=== PATIENT | male | born 1940 | race Caucasian/White ===

== ENCOUNTER 2017-01-15 11:00 | Inpatient (IN) ==
[2017-01-15] MEDS ORDERED: SODIUM CHLORIDE 0.9% 1,000 ML IV STA (11:40)
[2017-01-15] MEDS ORDERED: ASPIRIN 325 MG TABLET PO STA (11:40)
[2017-01-15] MEDS ORDERED: ONDANSETRON 4 MG/2 ML VIAL IV PRN ×2 (11:40→14:38)
--- NOTE | 2017-01-15 11:42 | Emergency Department Note ---
Arrival - Arrival Chief Complaint: Chest Pain Stated Complaint: sob,chest pain ED Nursing Triage Note: weakness in legs for three days. started having pain in center of chest with sob yesterday. has recent carotid surgery in [place] on . sob is worse on exertion. Mode of Arrival: Wheelchair Limitations: No Limitations Source: Patient, Family, RN Notes Reviewed - History of Present Illness HPI Narrative: Patient is a 76-year-old white male with a history of lightheadedness, shortness of breath, and chest discomfort. Symptoms have been ongoing for several days. Patient admits to dark black bowel movement since undergoing carotid endarterectomy in [place] on 12/22/2016. The patient denies any nausea or vomiting. There is no history of diaphoresis. The family has noticed that the patient is very pale. He is presently on Pradaxa, Plavix, and baby aspirin. Patient denies any abdominal pain. Onset (ago): day(s) (3-4) Allergies/Adverse Reactions: Allergies Allergy/AdvReac Type Severity Reaction Status Date / Time bacitracin AdvReac RASH Verified 01/15/17 11:59 [From Neosporin ([id number])] Neomycin AdvReac RASH Verified 01/15/17 11:59 [From Neosporin ([id number])] polymyxin B AdvReac RASH Verified 01/15/17 11:59 [From Neosporin ([id number])] Home Medications: Home Medications Medication Instructions Recorded Confirmed Type Aspirin EC Tab 81 mg PO DAILY 01/15/17 01/15/17 History Clopidogrel [Plavix] 75 mg PO DAILY 01/15/17 01/15/17 History Digoxin Tab [Lanoxin Tab] 0.125 mg PO DAILY 01/15/17 01/15/17 History Fenofibrate [Tricor] 145 mg PO DAILY 01/15/17 01/15/17 History Fluticasone 50 Mcg Nasal [place] 1 spray BOTH NARES DAILY PRN 01/15/17 01/15/17 History [Flonase Nasal [place]] Hydrocodone/Acetaminophen 1 each PO Q4H PRN 01/15/17 01/15/17 History [Hydrocodon-Acetaminophen 5-325] Losartan [Cozaar] 50 mg PO BID 01/15/17 01/15/17 History Magnesium Chloride [Slow Mag] 128 mg PO QAM 01/15/17 01/15/17 History Metoprolol Succinate 100 mg PO QAM 01/15/17 01/15/17 History Potassium Chloride 10 meq PO DAILY 01/15/17 01/15/17 History dilTIAZem HCl [Diltiazem ER (24 300 mg PO DAILY 01/15/17 01/15/17 History hr)] hydroCHLOROthiazide 12.5 mg PO DAILY 01/15/17 01/15/17 History [Hydrochlorothiazide] Review of System - Review of System 12 point system: reviewed and no additional remarkable complaints except as stated - Review of System Constitutional: Absent: chills, fever Respiratory: Absent: wheezing Cardiovascular: Present: chest pain, dyspnea on exertion. Absent: palpitations Gastrointestinal: Present: melena. Absent: abdominal pain, nausea, vomiting Medical,Surgical,& Family Hx - Medical History Cardio: History of: Hypertension, Pacemaker Endocrine: History of: Diabetes Mellitus (IDDM), Dyslipidemia - Social History Smoking Status: Current every day smoker (1 pack a day) Have you smoked in the last 12 months: Yes Functional capacity: independent ambulation Exam Vital Signs: Vital Signs Temperature 98.1 F 01/15/17 11:04 Pulse Rate 73 01/15/17 11:04 Respiratory Rate 20 01/15/17 11:04 Blood Pressure 142/50 01/15/17 11:04 O2 Sat by Pulse Oximetry 100 01/15/17 11:20 GENERAL: This is a chronically and acutely ill-appearing pale white male in no apparent distress. VITAL SIGNS: Reviewed HEENT: Head is atraumatic and normocephalic. Pupils are equal round react to light. Extraocular movements are intact. Oropharynx is benign with moist mucous membranes. NECK: Neck is soft and supple without tenderness. There are no masses. There is no lymphadenopathy. Healing left carotid endarterectomy incision. No evidence of erythema or induration. LUNGS: Lungs are clear to auscultation. Chest rises symmetrically. There is no chest wall tenderness. CV: Heart is regular rate and rhythm without murmurs rubs or gallops. ABDOMEN: Abdomen is soft, nontender to palpation. There are no abdominal abnormal masses palpated. There is no organomegaly. Bowel sounds are present and active. Rectal: Melenic stool present. Heme positive. Good rectal tone. No masses. SKIN: Skin is warm and dry. No rash. Pallor EXTREMITIES: Patient has full range of motion without tenderness. There is no pedal edema. NEUROLOGIC: Awake alert and oriented 4. Cranial nerves II through XII are grossly intact. Motor is 5 over 5 in all extremities bilaterally. Course - Consultations Consultation #1: Discussed with Dr. Carlos Guadarrama.. Patient will be admitted to his service. Time: 13:19 Results - Labs CBC & BMP: 01/15/17 11:18 01/15/17 11:18 Lab Results: I have reviewed the patients labs - EKG EKG results: interpreted by ERMD - Diagnostic Findings Procedure: Chest x-ray: image reviewed by me Disposition Clinical Impression: Anemia, Acute on chronic GI bleed, Chronic anticoagulation, Carotid artery disease Case discussed with: patient, patient's family Disposition: Still a Patient Condition: Guarded Time of Disposition: 13:18
--- NOTE | 2017-01-15 11:43 | EKG Report ---
Stationary ECG Study [facility] ER Test Date: 01/15/2017 11:07:48 AM Pat Name: DAVID BASS Department: Room: Gender: M Survey Researcher: : 1940 Requested by: Gold Cadena Order Number: [id number] Reading MD: FARIDA OLIVEIRA Intervals [place] Rate: 64 P: 999 IN: 0 QRS: -79 QRSD: 190 T: 95 QT: 437 QTc: 447 Interpretive Statements ELECTRONIC VENTRICULAR PACEMAKER NO FURTHER INTERPRETATION POSSIBLE ATYPICAL ECG Electronically Signed On 01-15-17 15:08:37 CDT by FARIDA OLIVEIRA [email or web address]
[2017-01-15 11:55] LABS: Basophils % 0.1 % (0.0-0.8); Eosinophils % 0.2 % (0.00-10.9); Hematocrit 19.7 VOL% (42.0-52.0); Hemoglobin 6.6 GM/DL (14.0-18.0); Immature Granulocytes % 0.4 %; Immature Granulocytes Absolute 0.05 #; Lymphocytes # 0.9 10*3/uL (1.4-4.0); Lymphocytes % 7.8 % (21.2-54.2); Mean Corpuscular HGB Conc 33.5 GM/DL (32-36); Mean Corpuscular Hemoglobin 31 PG (27-34); Mean Corpuscular Volume 93.4 FL (87-102); Mean Platelet Volume 9.8 FL (9.6-12.0); Monocytes # 0.7 10*3/uL (0.11-0.8); Monocytes % 6.2 % (1.7-12.7); Neutrophils # 9.5 10*3/uL (1.4-7.4); Neutrophils % 85.3 % (38.7-73.9); Platelet Count 359 T/CUMM (130-400); Red Blood Count 2.11 MC/CUMM (3.8-5.5); White Blood Count 11.2 T/CUMM (4-12)
[2017-01-15] MEDS ORDERED: PANTOPRAZOLE 40 MG VIAL IV ONE (11:55)
[2017-01-15] MEDS ORDERED: PANTOPRAZOLE 40 MG VIAL IV STA (11:55)
[2017-01-15 12:14] LABS: INR 2.3
[2017-01-15 12:15] LABS: PT Patient Result 25.8 SECS; Partial Thromboplastin Time 53.7 SECS (0-40)
[2017-01-15 12:34] LABS: Albumin 3.2 G/DL (3.4-5.0); Bilirubin,Total 0.5 MG/DL (0.2-1.0); Calcium 9.8 MG/DL (8.5-10.1); Osmolality,Calculated 266.2 MOS/KG (273-304); Potassium 4.2 MMOL/L (3.5-5.1); Total Protein 6.8 G/DL (6.4-8.3)
--- NOTE | 2017-01-15 12:58 | XRay Report ---
Portable chest Date: 01/15/2017 Clinical history: Chest pain Comparison: 04/04/2011 Technique: Portable AP sitting chest Findings: The heart is minimally enlarged with left subclavian ventricular permanent pacemaker. The lungs are overexpanded with chronic scarring. Progressive parenchymal findings in the left mid to lower lung zone with small left pleural effusion. Degenerative changes are noted. Metallic stent in the medial lower left chest location. Impression: Minimal cardiomegaly with metallic stent in the area of the lower thoracic aorta and left subclavian ventricular permanent pacemaker. COPD with chronic scarring. Progressive atelectasis/infiltration in the left mid to lower lung zone with small left pleural effusion. Follow-up chest x-ray is recommended document clearing and exclude additional underlying pleural-based pathology. PROCEDURE INTERPRETED AT [facility] DEPARTMENT OF RADIOLOGY Final Report Signed by: Dr. Tiffany Tyler
[2017-01-15] MEDS ORDERED: SODIUM CHLORIDE 0.9% 250 ML IV PRN (14:38)
[2017-01-15] MEDS ORDERED: ACETAMINOPHEN 325 MG TABLET PO PRN (14:38)
--- NOTE | 2017-01-15 15:02 | Gastrointestinal Consult Note ---
Assessment and Plan (1) Anemia Status: Acute Assessment and plan: 01/15-2 week history of increased fatigue, weakness, shortness of breath with H& H of 11/20 and melena on Pradaxa, Plavix and aspirin therapy. Status post carotid endarterectomy 12/22 at [facility]. No known prior history of anemia in the past. No prior blood transfusions. No known endoscopy in facility database. Hold anticoagulants and will consider diagnostic EGD tomorrow to further evaluate. Stools for occult blood. Plan an addendum to follow Dr. Spear. Current Visit: Yes History of Present Illness Chief complaint: Anemia, melena History of present illness: Mr. Us is a 76 year old male who was admitted to the hospital with complaints of shortness of breath, chest discomfort and weakness patient is a fairly good historian however information is also obtained from chart review. Patient reportedly underwent a carotid endarterectomy in [place] on December 22. Prior to the surgery, he states that he was on Pradaxa however following the surgery he was also placed on Plavix and baby aspirin. He states he has not felt very well since his surgery however over the last several days he noticed that he has been having increased weakness and fatigue. He also states that he has noticed he has become increasingly short of breath which is unusual for him. Patient also had some discomfort in his left upper chest without other associated symptoms therefore came to the emergency room for further evaluation of this. Patient also brought forth that over the last 2 weeks he is noted his stools have become dark and tarry. He denies any hematochezia associated with this. He denies any abdominal pain. He denies any increase dyspepsia, dysphagia, reflux. Denies a history of peptic ulcer disease. He denies any recent weight loss. He states he has noticed here recently at night when he lies down he has some discomfort in his left upper chest however if he gets up and walks around this will improve. He denies any prior history of anemia or blood transfusions in the past. H&H noted at 11/20. BUN/creatinine ratio elevated at 24. Troponin levels noted to be mildly increased as well. Cardiac workup currently pending. Patient states he has had endoscopy in the past however unable to locate this in our facility database. Home Medications Medication Instructions Recorded Confirmed Type Aspirin EC Tab 81 mg PO DAILY 01/15/17 01/15/17 History Clopidogrel [Plavix] 75 mg PO DAILY 01/15/17 01/15/17 History Digoxin Tab [Lanoxin Tab] 0.125 mg PO DAILY 01/15/17 01/15/17 History Fenofibrate [Tricor] 145 mg PO DAILY 01/15/17 01/15/17 History Fluticasone 50 Mcg Nasal [place] 1 spray BOTH NARES DAILY PRN 01/15/17 01/15/17 History [Flonase Nasal [place]] Hydrocodone/Acetaminophen 1 each PO Q4H PRN 01/15/17 01/15/17 History [Hydrocodon-Acetaminophen 5-325] Losartan [Cozaar] 50 mg PO BID 01/15/17 01/15/17 History Magnesium Chloride [Slow Mag] 128 mg PO QAM 01/15/17 01/15/17 History Metoprolol Succinate 100 mg PO QAM 01/15/17 01/15/17 History Potassium Chloride 10 meq PO DAILY 01/15/17 01/15/17 History dilTIAZem HCl [Diltiazem ER (24 300 mg PO DAILY 01/15/17 01/15/17 History hr)] hydroCHLOROthiazide 12.5 mg PO DAILY 01/15/17 01/15/17 History [Hydrochlorothiazide] Allergies Allergy/AdvReac Type Severity Reaction Status Date / Time bacitracin AdvReac RASH Verified 01/15/17 11:59 [From Neosporin ([id number])] Neomycin AdvReac RASH Verified 01/15/17 11:59 [From Neosporin ([id number])] polymyxin B AdvReac RASH Verified 01/15/17 11:59 [From Neosporin ([id number])] Medical,Surgical,& Family Hx - Medical History Cardio: History of: Cardiac Dysrhythmia, CAD, Hypertension, Pacemaker HEENT: History of: Ear Problem (hard of hearing) Endocrine: History of: Diabetes Mellitus (IDDM), Dyslipidemia - Surgical History Cardiac Surgeries: Sugical HX of: Carotid Endarterectomy Thoracic Surgeries: Patient denies;: Organ Transplant HEENT Surgeries: Surgical HX of: Carotid Endarterectomy, Tonsilectomy & Adenoidectomy Patient denies: Eye Surgery Abdominal Surgeries: Surgical HX of: Colonoscopy, EGD - Family History Family History: Reports;: Family Diabetes, Family Heart Disease, Family Hypertension Denies;: Family Cancer, Family Hematology, Family Stroke - Social History Smoking Status: Current every day smoker Frequency of Alcohol Use: Occasionally Type of Drug Use: None 12 point system: reviewed and no additional remarkable complaints except as stated - Constitutional Constitutional: Present: as per HPI - EENT Eyes: Present: as per HPI Ears: Present: as per HPI Nose, mouth and throat: Present: as per HPI - Cardiovascular Cardiovascular: Present: as per HPI - Respiratory Respiratory: Present: as per HPI - Gastrointestinal Gastrointestinal: Present: as per HPI - Genitourinary Genitourinary: Present: as per HPI - Musculoskeletal Musculoskeletal: Present: as per HPI - Neurological Neurological: Present: as per HPI - Psychiatric Psychiatric: Present: as per HPI - Endocrine Endocrine: Present: as per HPI - Hematologic/Lymphatic Hematologic/Lymphatic: Present: as per HPI Exam - Constitutional Vitals: Period Temp Pulse Resp BP Sys/Song Pulse Ox Last 24 Hr 98.1 F-98.1 F 64-76 18-20 142-159/38-55 95-100 General appearance: normal weight, no acute distress - Head Head exam: Present: normal inspection, normocephalic - Eye Eye exam: Present: other (Lids and conjunctive are unremarkable). Absent: scleral icterus - ENT ENT exam: Present: normal exam, normal oropharynx - Neck Neck exam: Present: normal inspection - Respiratory Respiratory exam: Present: clear to auscultation bilaterally. Absent: rales, rhonchi, wheezes - Cardiovascular Cardiovascular exam: Present: regular rate and rhythm. Absent: diastolic murmur , JVD, systolic murmur - GI/Abdominal GI/Abdominal exam: Present: normal bowel sounds, soft. Absent: ascites, distended, mass, organomegaly, tenderness - Extremities Exam Extremities exam: Present: normal inspection, full ROM - Back Exam Back exam: Present: normal inspection - Neurological Exam Neurological exam: Present: alert, oriented X3 - Psychiatric Psychiatric exam: Present: normal affect, normal mood - Skin Skin exam: Present: normal color, warm, dry Results - Labs CBC & BMP: 01/15/17 11:18 01/15/17 11:18 Lab Results: I have reviewed the past 24 hour labs
[2017-01-15] MEDS: SODIUM CHLORIDE 0.9% 1,000 ML IV SCH (15:50)
--- NOTE | 2017-01-15 18:30 | Internal Med History&Physical ---
Assessment and Plan (1) Status post carotid endarterectomy Status: Acute Current Visit: Yes (2) Hypoxia Status: Acute Current Visit: Yes (3) Hyponatremia Status: Acute Current Visit: Yes (4) Hypertension Status: Chronic Current Visit: Yes Qualifiers: Hypertension type: essential hypertension Qualified Code(s): I10 - Essential (primary) hypertension (5) Diabetes Status: Chronic Current Visit: Yes Qualifiers: Diabetes mellitus type: type 2 Diabetes mellitus complication status: without complication (6) Anemia Status: Acute Current Visit: Yes Qualifiers: Iron deficiency anemia type: chronic blood loss (7) Chronic anticoagulation Status: Chronic Current Visit: Yes (8) Carotid artery disease Status: Chronic Current Visit: Yes Qualifiers: Laterality: bilateral Qualified Code(s): I77.9 - Disorder of arteries and arterioles, unspecified (9) GI bleed Status: Acute Current Visit: Yes History of Present Illness Chief complaint: shortness of breath and weakness History of present illness: Mr. Us is a 76 year old male patient of Dr. Carlos Guadarrama with history of HTN, chronic atrial fibrillation and recent pacemaker placement, dyslipidemia, DM, atheroscerotic disease to include carotids, who presented to ER with progressive fatigue/shortness of breath and found to be severely anemic. He reports dark tarry stools over the last 3 weeks or so. He is status post endarterectomy 3 weeks ago in [place], and was placed on Plavix and Pradaxa. He was already on Aspirin. There is a question of Eliquis , as well. He denies pain, nausea, vomiting, or diarrhea. Home Medications Medication Instructions Recorded Confirmed Type Aspirin EC Tab 81 mg PO DAILY 01/15/17 01/15/17 History Clopidogrel [Plavix] 75 mg PO DAILY 01/15/17 01/15/17 History Digoxin Tab [Lanoxin Tab] 0.125 mg PO DAILY 01/15/17 01/15/17 History Fenofibrate [Tricor] 145 mg PO DAILY 01/15/17 01/15/17 History Fluticasone 50 Mcg Nasal [place] 1 spray BOTH NARES DAILY PRN 01/15/17 01/15/17 History [Flonase Nasal [place]] Hydrocodone/Acetaminophen 1 each PO Q4H PRN 01/15/17 01/15/17 History [Hydrocodon-Acetaminophen 5-325] Losartan [Cozaar] 50 mg PO BID 01/15/17 01/15/17 History Magnesium Chloride [Slow Mag] 128 mg PO QAM 01/15/17 01/15/17 History Metoprolol Succinate 100 mg PO QAM 01/15/17 01/15/17 History Potassium Chloride 10 meq PO DAILY 01/15/17 01/15/17 History dilTIAZem HCl [Diltiazem ER (24 300 mg PO DAILY 01/15/17 01/15/17 History hr)] hydroCHLOROthiazide 12.5 mg PO DAILY 01/15/17 01/15/17 History [Hydrochlorothiazide] Allergies Allergy/AdvReac Type Severity Reaction Status Date / Time bacitracin AdvReac RASH Verified 01/15/17 11:59 [From Neosporin ([id number])] Neomycin AdvReac RASH Verified 01/15/17 11:59 [From Neosporin ([id number])] polymyxin B AdvReac RASH Verified 01/15/17 11:59 [From Neosporin ([id number])] versed AdvReac Uncoded 01/16/17 03:14 Medical,Surgical,& Family Hx - Medical History Cardio: History of: Cardiac Dysrhythmia, CAD, Hypertension, Pacemaker HEENT: History of: Ear Problem (hard of hearing) Endocrine: History of: Diabetes Mellitus (IDDM), Dyslipidemia - Surgical History Cardiac Surgeries: Sugical HX of: Carotid Endarterectomy Thoracic Surgeries: Patient denies;: Organ Transplant HEENT Surgeries: Surgical HX of: Carotid Endarterectomy, Tonsilectomy & Adenoidectomy Patient denies: Eye Surgery Abdominal Surgeries: Surgical HX of: Colonoscopy, EGD - Family History Family History: Reports;: Family Diabetes, Family Heart Disease, Family Hypertension Denies;: Family Cancer, Family Hematology, Family Stroke - Social History Smoking Status: Current every day smoker Frequency of Alcohol Use: Occasionally Type of Drug Use: None Functional capacity: independent ambulation - Constitutional Constitutional: Present: fatigue, lethargy, malaise, weakness - Cardiovascular Cardiovascular: Absent: chest pain at rest, chest pain with activity - Respiratory Respiratory: Present: dyspnea on exertion - Gastrointestinal Gastrointestinal: Absent: nausea Exam - Constitutional Vitals: Period Temp Pulse Resp BP Sys/Song Pulse Ox Last 24 Hr 97.4 F-98.1 F 60-87 15-24 127-163/38-63 93-100 General appearance: no acute distress - Head Head exam: Present: normocephalic - Eye Eye exam: Present: EOMI - Respiratory Respiratory exam: Present: clear to auscultation bilaterally. Absent: rhonchi, wheezes - Cardiovascular Cardiovascular exam: Present: regular rate and rhythm (pacemaker in place) - GI/Abdominal GI/Abdominal exam: Present: normal bowel sounds, soft. Absent: tenderness - Extremities Exam Extremities exam: Absent: edema - Neurological Exam Neurological exam: Present: alert, oriented X3 - Psychiatric Psychiatric exam: Present: normal mood - Skin Skin exam: Present: warm, dry Results - Labs CBC & BMP: 01/16/17 05:11 01/16/17 05:11 - EKG EKG shows: atrial fibrillation (paced rhythm) - Diagnostic Findings Procedure: Chest x-ray: image reviewed by me, report reviewed by me
[2017-01-15] MEDS ORDERED: GLUCAGON 1 MG VIAL IM PRN (18:32)
[2017-01-15] MEDS ORDERED: DEXTROSE 50% 25 GM/50 ML SYRINGE IV PRN (18:32)
[2017-01-15] MEDS ORDERED: FUROSEMIDE 20 MG/2 ML VIAL IV ONE (18:42)
[2017-01-15] MEDS: traZODone 50 MG TABLET PO SCH (21:35)
[2017-01-15] MEDS: INSULIN REGULAR 100 UNIT/ML SUBCUT SCH (21:35)
[2017-01-15] MEDS: DOCUSATE SODIUM 100 MG CAPSULE PO SCH (21:35)
[2017-01-16] MEDS ORDERED: FUROSEMIDE 20 MG/2 ML VIAL IV ONE (00:10)
[2017-01-16] MEDS: SODIUM CHLORIDE 0.9% 1,000 ML IV SCH ×3 (01:08→13:23)
[2017-01-16 05:32] LABS: Basophils % 0.1 % (0.0-0.8); Eosinophils % 0.1 % (0.00-10.9); Hematocrit 24.4 VOL% (42.0-52.0); Hemoglobin 8.4 GM/DL (14.0-18.0); Immature Granulocytes % 0.8 %; Immature Granulocytes Absolute 0.12 #; Lymphocytes # 0.7 10*3/uL (1.4-4.0); Lymphocytes % 4.3 % (21.2-54.2); Mean Corpuscular HGB Conc 34.4 GM/DL (32-36); Mean Corpuscular Hemoglobin 31 PG (27-34); Mean Corpuscular Volume 89.1 FL (87-102); Mean Platelet Volume 10.2 FL (9.6-12.0); Monocytes # 0.9 10*3/uL (0.11-0.8); Monocytes % 5.5 % (1.7-12.7); Neutrophils # 13.9 10*3/uL (1.4-7.4); Neutrophils % 89.2 % (38.7-73.9); Platelet Count 295 T/CUMM (130-400); Red Blood Count 2.74 MC/CUMM (3.8-5.5); Red Cell Distribution Width 14.5 % (9.3-17.3); White Blood Count 15.5 T/CUMM (4-12)
[2017-01-16 05:59] LABS: Lymphocytes 5 % (20-55); Total Cells Counted 100
[2017-01-16 06:00] LABS: Anisocytosis 1+; Microcytosis 1+; Platelet Estimate Normal
[2017-01-16 06:01] LABS: Ovalocytes Few; Segmented Neutrophils 93 % (50-85)
[2017-01-16 06:17] LABS: Calcium 9.3 MG/DL (8.5-10.1); Magnesium 2.1 MG/DL (1.8-2.4); Osmolality,Calculated 270.8 MOS/KG (273-304); Potassium 4.1 MMOL/L (3.5-5.1)
[2017-01-16] MEDS ORDERED: SODIUM CHLORIDE 0.9% 250 ML IV PRN (07:53)
--- NOTE | 2017-01-16 08:44 | XRay Report ---
Portable chest. Indication: Recent pacemaker placement. The heart is enlarged. Cardiac hardware is in satisfactory position. The pulmonary vasculature is increasing. There are bilateral basilar infiltrates and atelectasis. Small bilateral pleural effusions are present. Impression: Interval worsening with development of venous congestion, bilateral infiltrates at the bases, small bilateral pleural effusions and basilar atelectasis. This could be attributable to congestive heart failure or pneumonia. PROCEDURE INTERPRETED AT [facility] DEPARTMENT OF RADIOLOGY Final Report Signed by: Dr. Savanna Ribera
[2017-01-16] MEDS ORDERED: DILTIAZEM HCL 300 MG PO SCH (09:00)
[2017-01-16] MEDS ORDERED: hydroCHLOROthiazide 12.5 MG CAPSULE PO SCH (09:00)
[2017-01-16] MEDS: NICOTINE 21 MG/24 HR PATCH TRANSDERM SCH (09:01)
[2017-01-16] MEDS: cefTRIAXone 1,000 MG in SODIUM CHLORIDE 0.9% 100 ML IV SCH (09:01)
[2017-01-16] MEDS: FUROSEMIDE 20 MG/2 ML VIAL IV SCH (09:01)
[2017-01-16] MEDS: INSULIN REGULAR 100 UNIT/ML SUBCUT SCH ×4 (09:13→20:07)
--- NOTE | 2017-01-16 09:36 | Gastrointestinal Progress Note ---
Assessment and Plan (1) Anemia Status: Acute Assessment and plan: 01/16-H&H 01/25 following 3 units of packed red blood cells. To be transfused 1 more today. Stools 3+ for occult blood. Still awaiting medical records from [facility]. Plan an addendum to followed by Dr. Spear. 01/15-2 week history of increased fatigue, weakness, shortness of breath with H& H of 11/20 and melena on Pradaxa, Plavix and aspirin therapy. Status post carotid endarterectomy 12/22 at [facility]. No known prior history of anemia in the past. No prior blood transfusions. No known endoscopy in facility database. Hold anticoagulants and will consider diagnostic EGD tomorrow to further evaluate. Stools for occult blood. Plan an addendum to follow Dr. Spear. Current Visit: Yes Qualifiers: Iron deficiency anemia type: chronic blood loss Gastroenterology - PN: Subj Interval history: CC: Anemia Patient is seen, awake and alert sitting up in bed. States he did not rest well overnight. Denies any abdominal pain, nausea or vomiting. He is tolerating clear liquid diet well and states that he is hungry. He is received a total of 3 units of packed red blood cells and to be transfused 1 more this morning. H&H is holding at 01/25. He does have an elevation in his WBCs to 15, 000. Abdomen is soft, nontender. We are still awaiting records from [facility] regarding his recent carotid endarterectomy. ROS: Denies shortness of breath or chest pain Exam (Progress Note) - Constitutional Vitals: Period Temp Pulse Resp BP Sys/Song Pulse Ox Last 24 Hr 96.0 F-98.2 F 60-94 13-27 90-171/38-83 63-100 General appearance: normal weight, no acute distress - Head Head exam: Present: normal inspection, normocephalic - Eye Eye exam: Present: other (Lids and conjunctivae are unremarkable). Absent: scleral icterus - ENT ENT exam: Present: normal exam, normal oropharynx - Neck Neck exam: Present: normal inspection - Respiratory Respiratory exam: Present: clear to auscultation bilaterally. Absent: rales, rhonchi, wheezes - Cardiovascular Cardiovascular exam: Present: regular rate and rhythm. Absent: diastolic murmur , JVD, systolic murmur - GI/Abdominal GI/Abdominal exam: Present: normal bowel sounds, soft. Absent: ascites, distended, mass, organomegaly, tenderness - Extremities Exam Extremities exam: Present: normal inspection, full ROM - Back Exam Back exam: Present: normal inspection - Neurological Exam Neurological exam: Present: alert, oriented X3 - Psychiatric Psychiatric exam: Present: normal affect, normal mood - Skin Skin exam: Present: normal color, warm, dry Results - Labs CBC & BMP: 01/16/17 05:11 01/16/17 05:11 Lab Results: I have reviewed the past 24 hour labs
[2017-01-16] MEDS: DILTIAZEM CD 180 MG CAPSULE PO SCH (09:48)
[2017-01-16] MEDS: PANTOPRAZOLE 40 MG TABLET PO SCH (09:48)
[2017-01-16] MEDS: MAGNESIUM CHLORIDE 64 MG TABLET PO SCH (09:48)
[2017-01-16] MEDS: METOPROLOL SUCCINATE XL 100 MG TABLET PO SCH (09:49)
[2017-01-16] MEDS: DOCUSATE SODIUM 100 MG CAPSULE PO SCH ×2 (09:49→20:06)
[2017-01-16] MEDS: POTASSIUM CHLORIDE 10 MEQ TABLET PO SCH (09:49)
[2017-01-16] MEDS: DIGOXIN 0.125 MG TABLET PO SCH (09:49)
[2017-01-16 10:21] LABS: Allen Test Positive
[2017-01-16 10:23] LABS: ABG Base Excess -2.4 MMOL/L (-2.5-2.5); ABG HCO3 22.2 MMOL/L (20-26); ABG Oxygen Saturation 89.9 % (95-100); ABG PCO2 30.2 MM HG (35-48); ABG PH 7.448 (7.35-7.45); ABG PO2 58.3 MM HG (80-95); ABG TCO2 19.4 MMOL/L (23-27)
--- NOTE | 2017-01-16 13:34 | Pulmonology Consult Note ---
Assessment and Plan (1) CHF (congestive heart failure) Status: Acute Assessment and plan: The patient's chest x-ray looks like he has mild CHF after receiving several units of blood. We will try to diurese a little. Current Visit: Yes (2) COPD (chronic obstructive pulmonary disease) Status: Acute Assessment and plan: The patient is a chronic smoker with some COPD. Will continue with bronchodilator therapy. Current Visit: Yes (3) Anemia Status: Acute Assessment and plan: Patient came in with a hematocrit of 19.7 and has received transfusions. His hematocrit is 24.4 today. Current Visit: Yes Qualifiers: Iron deficiency anemia type: chronic blood loss (4) GI bleed Status: Acute Assessment and plan: Patient is having melena and is being evaluated by GI. Current Visit: Yes (5) Status post carotid endarterectomy Status: Acute Assessment and plan: The patient had a carotid endarterectomy several weeks ago and has been on anticoagulation. Current Visit: Yes (6) Chronic anticoagulation Status: Chronic Assessment and plan: The patient has been taken multiple anticoagulants. Now he is having significant bleeding. Current Visit: Yes (7) Diabetes Status: Chronic Assessment and plan: Patient's glucose is 172 . Current Visit: Yes Qualifiers: Diabetes mellitus type: type 2 Diabetes mellitus complication status: without complication (8) Hypertension Status: Chronic Assessment and plan: Patient's blood pressure is stable. Current Visit: Yes Qualifiers: Hypertension type: essential hypertension Qualified Code(s): I10 - Essential (primary) hypertension History of Present Illness Chief complaint: Shortness of breath History of present illness: Mr. Us is a 76 year old white male has a history of cigarette smoking and has numerous medical problems. He has known coronary artery disease along with cerebral vascular disease. He has a history of hypertension, hyperlipidemia, diabetes, and COPD. Several weeks ago he had carotid endarterectomy in [place]. He has been on multiple anticoagulants. He now comes in with weakness and fatigue and shortness of breath and was found to be very anemic. He was felt to possibly be GI bleeding. He did receive 3 units of packed cells yesterday. He does have an abnormal x-ray and is probably a little overloaded. He denies being excessively short of breath. He does have a Forbes catheter now that has some hematuria. His anticoagulation is being held. He apparently has had some melena. He is a chronic smoker. Home Medications Medication Instructions Recorded Confirmed Type Aspirin EC Tab 81 mg PO DAILY 01/15/17 01/15/17 History Clopidogrel [Plavix] 75 mg PO DAILY 01/15/17 01/15/17 History Digoxin Tab [Lanoxin Tab] 0.125 mg PO DAILY 01/15/17 01/15/17 History Fenofibrate [Tricor] 145 mg PO DAILY 01/15/17 01/15/17 History Fluticasone 50 Mcg Nasal [place] 1 spray BOTH NARES DAILY PRN 01/15/17 01/15/17 History [Flonase Nasal [place]] Hydrocodone/Acetaminophen 1 each PO Q4H PRN 01/15/17 01/15/17 History [Hydrocodon-Acetaminophen 5-325] Losartan [Cozaar] 50 mg PO BID 01/15/17 01/15/17 History Magnesium Chloride [Slow Mag] 128 mg PO QAM 01/15/17 01/15/17 History Metoprolol Succinate 100 mg PO QAM 01/15/17 01/15/17 History Potassium Chloride 10 meq PO DAILY 01/15/17 01/15/17 History dilTIAZem HCl [Diltiazem ER (24 300 mg PO DAILY 01/15/17 01/15/17 History hr)] hydroCHLOROthiazide 12.5 mg PO DAILY 01/15/17 01/15/17 History [Hydrochlorothiazide] Allergies Allergy/AdvReac Type Severity Reaction Status Date / Time bacitracin AdvReac RASH Verified 01/15/17 11:59 [From Neosporin ([id number])] Neomycin AdvReac RASH Verified 01/15/17 11:59 [From Neosporin ([id number])] polymyxin B AdvReac RASH Verified 01/15/17 11:59 [From Neosporin ([id number])] versed AdvReac Uncoded 01/16/17 03:14 - Constitutional Constitutional: Present: fatigue, weakness. Absent: chills, fever(s), weight loss - EENT Eyes: Absent: loss of vision Ears: Absent: decreased hearing Nose, mouth and throat: Absent: dysphagia, headache(s), sinus pressure - Cardiovascular Cardiovascular: Present: dyspnea, orthopnea. Absent: chest pain at rest, chest pain with activity, edema, palpitations - Respiratory Respiratory: Present: cough, dyspnea, wheezing. Absent: hemoptysis, pain on inspiration - Gastrointestinal Gastrointestinal: Present: melena. Absent: abdominal pain, change in bowel habits, dysphagia, heartburn, nausea, vomiting - Genitourinary Genitourinary: Present: hematuria. Absent: difficulty urinating, dysuria - Musculoskeletal Musculoskeletal: Absent: arthralgias, muscle weakness - Neurological Neurological: Absent: abnormal speech, focal weakness, paresthesias Exam (Pulmonay) H&P - Constitutional Vitals: Period Temp Pulse Resp BP Sys/Song Pulse Ox Last 24 Hr 96.0 F-98.2 F 60-94 13-27 90-171/38-83 63-100 General appearance: normal weight, no acute distress (He is comfortable lying in bed.) - Head Head exam: Present: normal inspection, normocephalic - Eye Eye exam: Present: EOMI. Absent: scleral icterus Pupils: Present: JEREMIAH - ENT ENT exam: Present: normal exam - Neck Neck exam: Present: normal inspection. Absent: lymphadenopathy, thyromegaly - Respiratory Respiratory exam: Present: rales (He does have some slight crackles in the bases.), rhonchi. Absent: accessory muscle use - Cardiovascular Cardiovascular exam: Present: regular rate and rhythm. Absent: gallop, systolic murmur - GI/Abdominal GI/Abdominal exam: Present: normal bowel sounds, soft. Absent: distended, organomegaly, tenderness - Extremities Exam Extremities exam: Absent: calf tenderness, edema - Neurological Exam Neurological exam: Present: alert, oriented X3. Absent: CN II-XII intact - Psychiatric Psychiatric exam: Present: normal affect - Skin Skin exam: Present: warm, dry Medical,Surgical,& Family Hx - Medical History Cardio: History of: Cardiac Dysrhythmia, CAD, Hypertension, Pacemaker HEENT: History of: Ear Problem (hard of hearing) Endocrine: History of: Diabetes Mellitus (IDDM), Dyslipidemia - Surgical History Cardiac Surgeries: Sugical HX of: Carotid Endarterectomy Thoracic Surgeries: Patient denies;: Organ Transplant HEENT Surgeries: Surgical HX of: Carotid Endarterectomy, Tonsilectomy & Adenoidectomy Patient denies: Eye Surgery Abdominal Surgeries: Surgical HX of: Colonoscopy, EGD - Family History Family History: Reports;: Family Diabetes, Family Heart Disease, Family Hypertension Denies;: Family Cancer, Family Hematology, Family Stroke - Social History Smoking Status: Current every day smoker Frequency of Alcohol Use: Occasionally Type of Drug Use: None Results - Labs CBC & BMP: 01/16/17 05:11 01/16/17 05:11 Labs: His PO2 is 58 with a PCO2 of 30 and a pH of 7.44 - Diagnostic Findings Procedure: Chest x-ray: image reviewed by me, report reviewed by me (Chest x- ray looks like mild congestive heart failure.)
[2017-01-16] MEDS ORDERED: FUROSEMIDE 40 MG/4 ML VIAL IV ONE (13:43)
--- NOTE | 2017-01-16 16:15 | Physician Query Form ---
CLICK EDIT DOCUMENT TO SELECT QUERY ANSWER --> OK --> SIGN Adina St RN Clinical Pl[employer] W) [phone] (f) [phone] [email or web address]: Make your selection(s) from the choices in EACH section by typing an "x" and enter comments in the comment section. Please use your independent medical judgment in providing your response. This request does not imply that any particular answer is desired or expected. CLINICAL INDICATORS: (Providers should not edit this section) Pt. admitted with acute GI bleed. Based on documentation of "acute anemia". H/H on admission of 11/20. Pt. transfused with 3 units PRBC's. H/H up to 01/25. Based on the above, could you clarify which of the following conditions you are evaluating, treating, and/or monitoring? ( x) Blood loss anemia ( x) acute ( ) chronic ( ) acute on chronic ( ) Acute blood loss anemia on baseline chronic anemia ( ) Acute blood loss anemia as a complication of a procedure ( ) Iron deficiency anemia not associated with blood loss ( ) Dilutional anemia due to IV fluids ( ) Anemia due to chemotherapy ( ) Anemia due to neoplastic disease ( ) Anemia due to chronic kidney disease ( ) Pernicious anemia ( ) Aplastic anemia ( ) Hemolytic anemia ( ) immune ( ) non-immune - please specify cause: ( ) Anemia due to other condition, please specify: ( ) Clinically unable to determine COMMENTS: Unable to fully evaluate source of blood loss until EGD is performed once off anticoagulants x 5 days. PLEASE ALSO DOCUMENT RESPONSE IN PROGRESS NOTES AND/OR DISCHARGE SUMMARY Use of terms such as suspected, likely, or probable (associated with a specific diagnosis that is being evaluated, monitored, or treated as if it exists) are acceptable and can be restated in the discharge summary if not ruled out. MTDD
--- NOTE | 2017-01-16 16:53 | ECHO Report ---
Magen Daquan Exam Date: 01/16/2017 08:09 Referring Physician: Technologist: Radha Fulton RDCS Age: 76 Ht (in): 72 Wt (lb): 172 Gender: M Exam [facility]: [facility] Echo Indications: Chest pain, unspecified, Shortness of breath, Weakness, Post Op carotid surgery 12/22/16, Essential (primary) hypertension, Presence of cardiac pacemaker, IDDM, Nicotine dependence, cigarettes, uncomplicated, Anemia, GL Bleed BP: 159 / 57 HR: 80 Rhythm: Pacemaker Technical Quality: Good IMPRESSIONS Mild left ventricular hypertrophy. Left ventricular ejection fraction is estimated at 60 %. Catheter/pacemaker wire visualized in the right ventricle. Moderately increased right atrial size. Moderately increased left atrial size. Mildly thickened mitral valve. 2 - 3 + mitral valve regurgitation. [id number] tricuspid valve regurgitation. Tricuspid regurgitation velocities suggest a PAP of 61 mmHg. Trace pulmonary valve regurgitation. MEASUREMENTS (Male / Female) Normal Values 2D ECHO LV Diastolic Diameter PLAX 5.4 cm 4.2 - 5.9 / 3.9 - 5.3 cm LV Systolic Diameter PLAX 3.4 cm LV Fractional Shortening PLAX 37.2 % IVS Diastolic Thickness 1.1 cm 0.6 - 1.0 / 0.6 - 0.9 cm LVPW Diastolic Thickness 1.1 cm 0.6 - 1.0 / 0.6 - 0.9 cm RV Internal Dim ED PLAX 3.2 cm Aortic Root Diameter 3.7 cm LA Systolic Diameter LX 5.2 cm 3.0 - 4.0 / 2.7 - 3.8 cm DOPPLER TR Peak Velocity 358.0 cm/s TR Peak Gradient 51.3 mmHg FINDINGS Left Ventricle Normal left ventricular cavity size. Mild left ventricular hypertrophy. Left ventricular ejection fraction is estimated at 60 %. Right Ventricle Normal right ventricular size. Catheter/pacemaker wire visualized in the right ventricle. Right Atrium Moderately increased right atrial size. Catheter/pacemaker wire in the right atrial cavity. Left Atrium Moderately increased left atrial size. Mitral Valve Mildly thickened mitral valve. 2 - 3 + mitral valve regurgitation. Aortic Valve Morphologically normal aortic valve without significant sclerosis or stenosis. There is no aortic regurgitation. Tricuspid Valve Morphologically normal tricuspid valve. [id number] tricuspid valve regurgitation. Tricuspid regurgitation velocities suggest a PAP of 61 mmHg. Pulmonic Valve Morphologically normal pulmonic valve. Trace pulmonary valve regurgitation. Pericardium Normal pericardium without effusion. Aorta Normal ascending aorta dimension. Hi Ellitot MD (Electronically Signed) Final Date: 16 January 2017 16:52
--- NOTE | 2017-01-16 17:30 | Urology Consultation ---
Assessment and Plan - Time spent with patient Time spent with patient: Greater than 30 minutes Time spent discussing smoking cessation with patient: 3 to 10 minutes (1) Hematuria Status: Acute Assessment and plan: Acute hematuria after traumatic Forbes removal History of recurrent hematuria in the past Continue smoking Irrigated bladder, then started continuous bladder irrigation. Titrate to light pink. Will wean irrigation as able Current Visit: Yes Qualifiers: Hematuria type: gross Qualified Code(s): R31.0 - Gross hematuria (2) Urinary retention Status: Acute Assessment and plan: Likely related with urethral trauma and BPH. History of urinary retention in the past. Maintain Forbes catheter to gravity. Will likely need follow-up with his urologist, Dr. Jose Enrique Adhikari, at discharge. Current Visit: Yes (3) Benign prostatic hyperplasia with urinary retention Status: Acute Assessment and plan: Needs to be on finasteride, if not already. Start home medications for BPH. Current Visit: Yes (4) Urethral trauma Status: Acute Assessment and plan: Unfortunately this patient inadvertently removed his inflated Forbes traumatically. I think most of his hematuria is coming from his urethra. He likely has a urethral tear due to the Forbes. Maintain current Forbes catheter for at least 5 days. Now that he is off anticoagulation, hopefully catheter will tamponade any bleeding. We will place a 4 x 4 at the meatus to attempt to allow urethra to clot. Thank you for allowing me to participate in his care. We will follow along. I have discussed his situation with Dr. Adhikari. Current Visit: Yes Qualifiers: Encounter type: initial encounter Qualified Code(s): S37.30XA - Unspecified injury of urethra, initial encounter History of Present Illness - Data of Consult Patient: new to practice Consult date: 01/16/17 Requesting Physician: Carlos Guadarrama - Consult Narrative History of present illness: Mr. Us is a 76 year old male who was admitted with a GI bleed. He had a recent a carotid endarterectomy by Pasquale Ram (vascular surgeon at [facility] in [place], [place]). He has been on aspirin Plavix and Pradaxa. He has a long-standing history of BPH. He has had a TURP by Dr. Jose Enrique Adhikari approximately 8-10 years ago. He has a history of recurrent hematuria. He underwent cystoscopy approximately one year ago. He had regrowth of adenoma. He has had a history of recurrent urinary retention. Until his recent admission, he reported that he was voiding fairly well. He had an indwelling catheter while in the ICU. He required diuresis due to congestive heart failure. His catheter was replaced this morning easily. Unfortunately, he inadvertently pulled out the catheter with Forbes balloon inflated. He was not able to void for several hours. He finally voided with gross hematuria with clots. Urology was called for assistance. Onset today, worsening, with inability to void currently. He is off of his antiplatelet medication and anticoagulation due to anemia. He continues to smoke cigarettes. CC: Carlos Guadarrama, DO Gross hematuria with clots, urinary retention, urethral trauma - Home Medications and Allergies Home Medications: Home Medications Medication Instructions Recorded Confirmed Type Aspirin EC Tab 81 mg PO DAILY 01/15/17 01/15/17 History Clopidogrel [Plavix] 75 mg PO DAILY 01/15/17 01/15/17 History Digoxin Tab [Lanoxin Tab] 0.125 mg PO DAILY 01/15/17 01/15/17 History Fenofibrate [Tricor] 145 mg PO DAILY 01/15/17 01/15/17 History Fluticasone 50 Mcg Nasal [place] 1 spray BOTH NARES DAILY PRN 01/15/17 01/15/17 History [Flonase Nasal [place]] Hydrocodone/Acetaminophen 1 each PO Q4H PRN 01/15/17 01/15/17 History [Hydrocodon-Acetaminophen 5-325] Losartan [Cozaar] 50 mg PO BID 01/15/17 01/15/17 History Magnesium Chloride [Slow Mag] 128 mg PO QAM 01/15/17 01/15/17 History Metoprolol Succinate 100 mg PO QAM 01/15/17 01/15/17 History Potassium Chloride 10 meq PO DAILY 01/15/17 01/15/17 History dilTIAZem HCl [Diltiazem ER (24 300 mg PO DAILY 01/15/17 01/15/17 History hr)] hydroCHLOROthiazide 12.5 mg PO DAILY 01/15/17 01/15/17 History [Hydrochlorothiazide] Allergies/Adverse Reactions: Allergies Allergy/AdvReac Type Severity Reaction Status Date / Time bacitracin AdvReac RASH Verified 01/15/17 11:59 [From Neosporin ([id number])] Neomycin AdvReac RASH Verified 01/15/17 11:59 [From Neosporin ([id number])] polymyxin B AdvReac RASH Verified 01/15/17 11:59 [From Neosporin ([id number])] versed AdvReac Uncoded 01/16/17 03:14 12 point system: reviewed and no additional remarkable complaints except as stated - Constitutional Constitutional: Present: anorexia, fatigue - EENT Ears: Present: decreased hearing - Cardiovascular Cardiovascular: Present: dyspnea on exertion. Absent: edema - Gastrointestinal Gastrointestinal: Present: hematochezia - Genitourinary Genitourinary: Present: difficulty urinating, hematuria (With clots), urinary incontinence, other (Bleeding per urethra) - Psychiatric Psychiatric: Absent: anxiety - Hematologic/Lymphatic Hematologic/Lymphatic: Present: easy bleeding Exam - Constitutional Vitals: Period Temp Pulse Resp BP Sys/Song Pulse Ox Last 24 Hr 96.0 F-98.2 F 60-94 13-27 90-171/48-83 63-98 General appearance: no acute distress - Head Head exam: Present: normal inspection, atraumatic - Eye Eye exam: Present: EOMI - ENT ENT exam: Present: normal oropharynx - Neck Neck exam: Present: other (Prior surgical scar from carotid endarterectomy). Absent: lymphadenopathy - Respiratory Respiratory exam: Present: other (Unlabored breathing at rest while sitting upright) - Cardiovascular Cardiovascular exam: Present: regular rate and rhythm - GI/Abdominal GI/Abdominal exam: Present: normal bowel sounds, distended (Suprapubic area) - Genitourinary Genitourinary: scrotum without lesions, cysts, edema or rash, diffusely enlarged prostate without tenderness, other (Approximately 50+ g prostate; gross hematuria per urethra without voiding) - Extremities Exam Extremities exam: Present: normal capillary refill - Back Exam Back exam: Absent: CVA tenderness (L), CVA tenderness (R) - Neurological Exam Neurological exam: Present: alert, oriented X3 - Psychiatric Psychiatric exam: Present: normal affect, normal mood - Skin Skin exam: Present: warm, dry Results - Labs CBC & BMP: 01/16/17 05:11 01/16/17 05:11 Lab Results: I have reviewed the past 24 hour labs (INR recently elevated to greater than 2.3) Procedures - Catheter Insertion (Urinary) Prophylactic antibiotics given: No Bladder Scan/Ultrasound used before catheterization: No Estimated amount of urin (mLs): 750 Preparation: Povidone-Iodine Type of catheter inserted: 3 way Catheter [place] Size: 22 Catheter Balloon Size (mLs): 30 (Sterile water) Topical anesthesia used: No Results: successfully catheterized-immediate flow (Required hand irrigation for clots, then began to flow light pink urine), urine sent for UA/ C&S Patient tolerated procedure: well Complications: bloody urine (Initially, cleared with irrigation)
--- NOTE | 2017-01-16 17:33 | Family Practice Progress Note ---
Family Practice - PN: Subj Interval history: Patient seen this morning. 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 He recently had a carotid endarterectomy in [place] and was put on anticoagulation subsequent to this. He has had recent bleeding with a low hematocrit as low as 19. He has been transfused 3 units of blood and it has come up somewhat. He is doing a lot better today and wants to be transferred to the room as he is "tired of being down here". He does seem to be hemodynamically stable. Is sitting up in bed without any respiratory distress. His sats are approximately 97% on 4 L nasal cannula. Will get a titrating down to 2 L to keep sats around 92% however we will get a pulmonary consult as he does seem a little wet on his exam. We will also get a chest x-ray is ordered per internal medicine DrHuan and transfer him to the floor if he continues to be stable. Exam (Progress Note) - Constitutional Vitals: Period Temp Pulse Resp BP Sys/Song Pulse Ox Last 24 Hr 96.0 F-98.2 F 60-94 13-27 90-171/48-83 63-98 Exam: Stable hemodynamically. No acute distress, no respiratory distress HEENT: Neck supple trachea midline no difficulty swallowing, ate his breakfast Cardiovascular no gallop or rub 1 out of 6 systolic ejection murmur Lungs positive rales are appreciated. But no respiratory distress oxygen sats 97% Abdomen soft nondistended Extremities no clubbing cyanosis or edema Patient does have a Forbes in place not having any complaints of pain at present Results - Labs CBC & BMP: 01/16/17 05:11 01/16/17 05:11
[2017-01-16] MEDS: ALBUTEROL/IPRATROPIUM 3 ML NEB RESP TX SCH (19:25)
[2017-01-16] MEDS: TAMSULOSIN 0.4 MG CAPSULE PO SCH (20:06)
[2017-01-16] MEDS: FINASTERIDE 5 MG TABLET PO SCH (20:06)
[2017-01-16] MEDS: traZODone 50 MG TABLET PO SCH (20:07)
[2017-01-17] MEDS: ALBUTEROL/IPRATROPIUM 3 ML NEB RESP TX SCH ×4 (00:25→19:47)
[2017-01-17 07:05] LABS: Basophils % 0.3 % (0.0-0.8); Eosinophils # 0.1 10*3/uL (0.0-0.87); Eosinophils % 0.7 % (0.00-10.9); Hemoglobin 8.7 GM/DL (14.0-18.0); Immature Granulocytes % 0.4 %; Immature Granulocytes Absolute 0.04 #; Lymphocytes # 0.9 10*3/uL (1.4-4.0); Lymphocytes % 9.1 % (21.2-54.2); Mean Corpuscular HGB Conc 34.8 GM/DL (32-36); Mean Corpuscular Hemoglobin 31 PG (27-34); Mean Corpuscular Volume 88.3 FL (87-102); Mean Platelet Volume 9.9 FL (9.6-12.0); Monocytes # 1.2 10*3/uL (0.11-0.8); Monocytes % 11.4 % (1.7-12.7); Neutrophils # 8.1 10*3/uL (1.4-7.4); Neutrophils % 78.1 % (38.7-73.9); Platelet Count 257 T/CUMM (130-400); Red Blood Count 2.83 MC/CUMM (3.8-5.5); Red Cell Distribution Width 14.9 % (9.3-17.3); White Blood Count 10.3 T/CUMM (4-12)
--- NOTE | 2017-01-17 07:30 | Urology Progress Note ---
Assessment and Plan (1) Hematuria Status: Acute Assessment and plan: Acute hematuria after traumatic Forbes removal History of recurrent hematuria in the past Continues smoking Stopped continuous bladder irrigation, will leave off as able. Instructed nursing staff to check. If urine remains clear in tubing, will remove irrigation and clamp import. I will leave the Forbes in place. Current Visit: Yes Qualifiers: Hematuria type: gross Qualified Code(s): R31.0 - Gross hematuria (2) Urinary retention Status: Acute Assessment and plan: Likely related with urethral trauma and BPH. History of urinary retention in the past. Maintain Forbes catheter to gravity. Started Flomax and finasteride. Will need follow-up with his urologist, Dr. Jose Enrique Adhikari, at discharge. Current Visit: Yes (3) Benign prostatic hyperplasia with urinary retention Status: Acute Assessment and plan: Needs to be on finasteride, if not already. Start home medications for BPH. Current Visit: Yes (4) Urethral trauma Status: Acute Assessment and plan: Unfortunately this patient inadvertently removed his inflated Forbes traumatically. I think most of his hematuria is coming from his urethra. He likely has a urethral tear due to the Forbes. Maintain current Forbes catheter for at least 5 days. Now that he is off anticoagulation, hopefully catheter will tamponade any bleeding. No active pericatheter urethral bleeding today. Hopefully it will resolve only with catheter placement. Thank you for allowing me to participate in his care. We will follow along. I plan to leave his catheter in place, and have him follow-up with Dr. Jose Enrique Adhikari for voiding trial. Current Visit: Yes Qualifiers: Encounter type: initial encounter Qualified Code(s): S37.30XA - Unspecified injury of urethra, initial encounter Urology - PN: Subj Interval history: CBI weaned overnight. Urine clear. Only some pericatheter bleeding with straining for bowel movement. The nurse reports he was confused overnight. Flomax and finasteride started. No vomiting. Tolerating p.o. intake. Exam - Constitutional Vitals: Period Temp Pulse Resp BP Sys/Song Pulse Ox Last 24 Hr 97.3 F-98.2 F 60-74 16-22 123-171/52-75 93-100 General appearance: no acute distress - Head Head exam: Present: atraumatic - ENT ENT exam: Present: normal oropharynx - Neck Neck exam: Present: normal inspection - Respiratory Respiratory exam: Present: other (Unlabored breathing at rest). Absent: accessory muscle use - Cardiovascular Cardiovascular exam: Present: other (Capillary refill less than 2 seconds) - GI/Abdominal GI/Abdominal exam: Present: normal bowel sounds, soft. Absent: rebound - Genitourinary Genitourinary: penis with no lesions or discharge, other (Three-way Forbes in place with clear urine. Slow drip CBI. No active pericatheter urethral bleeding.) - Extremities Exam Extremities exam: Absent: edema - Neurological Exam Neurological exam: Present: alert, other (Mildly confused. Able to tell what happened with his prior catheter, and where he was.) - Psychiatric Psychiatric exam: Present: normal affect, normal mood Results - Labs CBC & BMP: 01/17/17 06:56 01/16/17 05:11 Lab Results: I have reviewed the past 24 hour labs
[2017-01-17 07:43] LABS: Magnesium 2.1 MG/DL (1.8-2.4); Potassium 4.2 MMOL/L (3.5-5.1)
[2017-01-17] MEDS: INSULIN REGULAR 100 UNIT/ML SUBCUT SCH ×4 (08:27→20:41)
--- NOTE | 2017-01-17 08:49 | Gastrointestinal Progress Note ---
Assessment and Plan (1) Anemia Status: Acute Assessment and plan: 01/17-HH stable at 8/25 w/o overt bleeding. Continue to monitor HH and will plan to proceed tentatively with EGD once Plavix/Pradaxa held x 5 days. Plan and addendum to follow by Dr Spear. 01/16-H&H 01/25 following 3 units of packed red blood cells. To be transfused 1 more today. Stools 3+ for occult blood. Still awaiting medical records from [facility]. Plan an addendum to followed by Dr. Spear. 01/15-2 week history of increased fatigue, weakness, shortness of breath with H& H of 11/20 and melena on Pradaxa, Plavix and aspirin therapy. Status post carotid endarterectomy 12/22 at [facility]. No known prior history of anemia in the past. No prior blood transfusions. No known endoscopy in facility database. Hold anticoagulants and will consider diagnostic EGD tomorrow to further evaluate. Stools for occult blood. Plan an addendum to follow Dr. Spear. Current Visit: Yes Qualifiers: Iron deficiency anemia type: chronic blood loss Gastroenterology - PN: Subj Interval history: CC: Anemia, melena Pt is seen, awake and alert, eating breakfast. States he is feeling fairly well today. Denies any abdominal pain, nausea or vomiting. States that he has had no overt bleeding noted. HH is stable at 8/25 after total of 4 units of PRBC. Abdomen is soft, nontender. Still awaiting records from [facility] at this time. ROS: Denies SOB or chest pain Exam (Progress Note) - Constitutional Vitals: Period Temp Pulse Resp BP Sys/Song Pulse Ox Last 24 Hr 97.3 F-98.2 F 60-74 16-22 123-171/52-75 93-100 General appearance: normal weight, no acute distress - Head Head exam: Present: normal inspection, normocephalic - Eye Eye exam: Present: other (lids and conjunctiva unremarkable). Absent: scleral icterus - ENT ENT exam: Present: normal exam, normal oropharynx - Neck Neck exam: Present: normal inspection - Respiratory Respiratory exam: Present: clear to auscultation bilaterally. Absent: rales, rhonchi, wheezes - Cardiovascular Cardiovascular exam: Present: regular rate and rhythm. Absent: diastolic murmur , JVD, systolic murmur - GI/Abdominal GI/Abdominal exam: Present: normal bowel sounds, soft. Absent: ascites, distended, mass, organomegaly, tenderness - Extremities Exam Extremities exam: Present: normal inspection, full ROM - Back Exam Back exam: Present: normal inspection - Neurological Exam Neurological exam: Present: alert, oriented X3 - Psychiatric Psychiatric exam: Present: normal affect, normal mood - Skin Skin exam: Present: normal color, warm Results - Labs CBC & BMP: 01/17/17 06:56 01/17/17 06:56 Lab Results: I have reviewed the past 24 hour labs
--- NOTE | 2017-01-17 09:02 | Pulmonology Progress Note ---
Pulmonary - PN: Subj Interval history: The patient is a 76-year-old white man that has numerous problems. He has COPD and vascular disease. He recently had a carotid endarterectomy in [place]. He is on several blood thinners. He came in with anemia and a GI bleed. He received several units of packed cells. He did have some mild CHF. Yesterday he had more confusion and pulled out his Forbes. He had considerable bleeding and now is getting irrigation. His hematuria looks much better. He says he is feeling better without any shortness of breath. He is having no further melena. His hematocrit is relatively stable at 25. He feels like his breathing is better. Exam (Progress Note) - Constitutional Vitals: Period Temp Pulse Resp BP Sys/Song Pulse Ox Last 24 Hr 97.3 F-98.2 F 60-74 16-22 123-171/52-75 93-100 Exam: General appearance: normal weight, no acute distress (He is sitting up eating breakfast and looks okay.) - Head Head exam: Present: normal inspection, normocephalic - Eye Eye exam: Present: EOMI. Absent: scleral icterus Pupils: Present: JEREMIAH - ENT ENT exam: Present: normal exam - Neck Neck exam: Present: normal inspection. Absent: lymphadenopathy, thyromegaly - Respiratory Respiratory exam: Present: He has fairly good breath sounds bilaterally with good air movement and only minimal crackles in the bases. He is not wheezing any today. - Cardiovascular Cardiovascular exam: Present: regular rate and rhythm. Absent: gallop, systolic murmur - GI/Abdominal GI/Abdominal exam: Present: normal bowel sounds, soft. He has no tenderness or guarding. - Extremities Exam Extremities exam: Absent: calf tenderness, edema - Neurological Exam Neurological exam: Present: alert, oriented X3. Absent: CN II-XII intact - Psychiatric Psychiatric exam: Present: normal affect - Skin Skin exam: Present: warm, dry Results - Labs CBC & BMP: 01/17/17 06:56 01/17/17 06:56 Assessment and Plan (1) CHF (congestive heart failure) Status: Acute Assessment and plan: The patient's chest x-ray looks like he has mild CHF after receiving several units of blood. He did get some Lasix yesterday. He says he is breathing better today. We will repeat a chest x-ray in the morning. Current Visit: Yes (2) COPD (chronic obstructive pulmonary disease) Status: Acute Assessment and plan: The patient is a chronic smoker with some COPD. Will continue with bronchodilator therapy. He says his shortness of breath is better. Current Visit: Yes (3) Anemia Status: Acute Assessment and plan: Patient came in with a hematocrit of 19.7 and has received transfusions. His hematocrit is 25 today and stable. Current Visit: Yes Qualifiers: Iron deficiency anemia type: chronic blood loss (4) GI bleed Status: Acute Assessment and plan: Patient is having melena and is being evaluated by GI. He will have an EGD at some point in the future. Current Visit: Yes (5) Status post carotid endarterectomy Status: Acute Assessment and plan: The patient had a carotid endarterectomy several weeks ago and has been on anticoagulation. He is doing well following his surgery. Current Visit: Yes (6) Chronic anticoagulation Status: Chronic Assessment and plan: The patient has been taken multiple anticoagulants. Now he is having significant bleeding. His anticoagulation will have to be adjusted in the future. Current Visit: Yes (7) Diabetes Status: Chronic Assessment and plan: Patient's glucose is 107 . Current Visit: Yes Qualifiers: Diabetes mellitus type: type 2 Diabetes mellitus complication status: without complication (8) Hypertension Status: Chronic Assessment and plan: Patient's blood pressure is stable. Overall he is hemodynamically stable. Current Visit: Yes Qualifiers: Hypertension type: essential hypertension Qualified Code(s): I10 - Essential (primary) hypertension
[2017-01-17] MEDS: cefTRIAXone 1,000 MG in SODIUM CHLORIDE 0.9% 100 ML IV SCH (09:20)
[2017-01-17] MEDS: POTASSIUM CHLORIDE 10 MEQ TABLET PO SCH (09:21)
[2017-01-17] MEDS: DILTIAZEM CD 180 MG CAPSULE PO SCH (09:21)
[2017-01-17] MEDS: FUROSEMIDE 20 MG/2 ML VIAL IV SCH (09:21)
[2017-01-17] MEDS: DOCUSATE SODIUM 100 MG CAPSULE PO SCH ×2 (09:21→20:37)
[2017-01-17] MEDS: MAGNESIUM CHLORIDE 64 MG TABLET PO SCH (09:21)
[2017-01-17] MEDS: METOPROLOL SUCCINATE XL 100 MG TABLET PO SCH (09:21)
[2017-01-17] MEDS: DIGOXIN 0.125 MG TABLET PO SCH (09:21)
[2017-01-17] MEDS: NICOTINE 21 MG/24 HR PATCH TRANSDERM SCH (09:22)
[2017-01-17] MEDS: PANTOPRAZOLE 40 MG TABLET PO SCH (09:22)
--- NOTE | 2017-01-17 13:42 | Event Note ---
Stop CBI this morning. Urine has remained clear. Spoke with the nursing staff , and I have instructed them that his catheter inflow port can be plugged. He should continue with a Forbes catheter to gravity. He will need to keep this at time of discharge, and follow-up with Dr. Jose Enrique Adhikari (his urologist) for a voiding trial. I will check on him in the morning. If he is doing well at that time, I will sign off.
--- NOTE | 2017-01-17 16:39 | Family Practice Progress Note ---
Family Practice - PN: Subj Interval history: Patient seen this morning. Is a 76-year-old with history of chcf smoking. He recently had a carotid endarterectomy in [place] and was put on anticoagulation subsequent to this. He has had recent bleeding with a low hematocrit as low as 19. He has been transfused 3 units of blood and it has come up somewhat. He is doing a lot better today and wants to be transferred to the room as he is "tired of being down here". He does seem to be hemodynamically stable. Is sitting up in bed without any respiratory distress. His sats are approximately 97% on 4 L nasal cannula. Will get a titrating down to 2 L to keep sats around 92% however we will get a pulmonary consult as he does seem a little wet on his exam. We will also get a chest x-ray is ordered per internal medicine DrHuan and transfer him to the floor if he continues to be stable. On seeing the patient this morning he was alert and oriented. Doing significantly better. Not having any shortness of breath at present on 2 L. Vital signs stable and his urinary catheter was clearing, and only very slightly blood-tinged. No I am not have any suprapubic pain. Am planning on discharging tomorrow if okay with specialties. We will try to schedule a lower GI study next week after he has been off Plavix for a while. In addition we will keep his Forbes in until he sees urologist in the next several days. Exam (Progress Note) - Constitutional Vitals: Period Temp Pulse Resp BP Sys/Song Pulse Ox Last 24 Hr 97.4 F-98.2 F 43-71 17-22 136-151/52-65 90-100 Exam: Stable hemodynamically. No acute distress, no respiratory distress HEENT: Neck supple trachea midline no difficulty swallowing, ate his breakfast Cardiovascular no gallop or rub 1 out of 6 systolic ejection murmur Lungs positive rales are appreciated. But no respiratory distress oxygen sats 97% Abdomen soft nondistended Genitourinary Forbes catheter is draining essentially clear yellow urine Patient does have a Forbes in place not having any complaints of pain at present Results - Labs CBC & BMP: 01/17/17 06:56 01/17/17 06:56 Assessment and Plan (1) COPD (chronic obstructive pulmonary disease) Status: Acute Assessment and plan: 01/17/2017: This is doing well at present. Patient does not have any significant wheezing. Pulmonary continue to follow Current Visit: Yes (2) GI bleed Status: Acute Assessment and plan: 01/17/2017: No GI bleed at present his H&H is stable today Current Visit: Yes (3) Hematuria Status: Acute Assessment and plan: 01/17/2017: Patient had traumatic injury to his urethra after pulling out his catheter. Another catheter is been placed and essentially draining clear urine with only very slight blood-tinged but this is almost resolved. We will continue his Forbes as directed by urology Current Visit: Yes Qualifiers: Hematuria type: gross Qualified Code(s): R31.0 - Gross hematuria (4) Hyponatremia Status: Acute Assessment and plan: 01/17/2017: Serum sodium has come up Psalm and will monitor closely Current Visit: Yes
[2017-01-17] MEDS: TAMSULOSIN 0.4 MG CAPSULE PO SCH (20:37)
[2017-01-17] MEDS: traZODone 50 MG TABLET PO SCH (20:37)
[2017-01-17] MEDS: FINASTERIDE 5 MG TABLET PO SCH (20:37)
[2017-01-18] MEDS: ALBUTEROL/IPRATROPIUM 3 ML NEB RESP TX SCH ×3 (00:50→13:28)
--- NOTE | 2017-01-18 08:00 | Urology Progress Note ---
Assessment and Plan (1) Hematuria Status: Acute Assessment and plan: Acute hematuria after traumatic Forbes removal History of recurrent hematuria in the past Continues smoking Remains clear off continuous bladder irrigation. I have spoken with his urologist, Dr. Adhikari, and he wants to follow-up as an outpatient. I have instructed the nursing staff to assist him with Forbes care. I will leave the Forbes in place. He will have a voiding trial as an outpatient. Current Visit: Yes Qualifiers: Hematuria type: gross Qualified Code(s): R31.0 - Gross hematuria (2) Urinary retention Status: Acute Assessment and plan: Likely related with urethral trauma and BPH. History of urinary retention in the past. Maintain Forbes catheter to gravity. Started Flomax and finasteride. Will need follow-up with his urologist, Dr. Jose Enrique Adhikari, at discharge. Current Visit: Yes (3) Benign prostatic hyperplasia with urinary retention Status: Acute Assessment and plan: Needs to be on finasteride, if not already. Start home medications for BPH. Current Visit: Yes (4) Urethral trauma Status: Acute Assessment and plan: Maintain current Forbes catheter for at least 5 days. Appears to have resolved only with catheter placement. I plan to leave his catheter in place, and have him follow-up with Dr. Jose Enrique Adhikari for voiding trial. Dr. Adhikari asked that he be given a syringe with instructions on Forbes removal. He will plan to have his Forbes removed at home at 6 AM on morning of follow-up. Thank you for allowing me to participate in his care. I will sign off for now. If any problems or concerns please call. Current Visit: Yes Qualifiers: Encounter type: initial encounter Qualified Code(s): S37.30XA - Unspecified injury of urethra, initial encounter Urology - PN: Subj Interval history: All CBI overnight. Urine remains clear. He is having no more bleeding from urinary tract. No shortness of breath or chest pain today. Exam - Constitutional Vitals: Period Temp Pulse Resp BP Sys/Song Pulse Ox Last 24 Hr 97.3 F-98.4 F 43-99 18-22 131-148/44-84 90-100 General appearance: no acute distress - Head Head exam: Present: normocephalic, atraumatic - Eye Eye exam: Present: EOMI - Neck Neck exam: Present: normal inspection - Respiratory Respiratory exam: Absent: accessory muscle use, stridor - Cardiovascular Cardiovascular exam: Absent: JVD - GI/Abdominal GI/Abdominal exam: Present: normal bowel sounds, soft. Absent: tenderness - Genitourinary Genitourinary: penis with no lesions or discharge, other (Forbes draining clear urine. Irrigation port plugged.) - Back Exam Back exam: Absent: CVA tenderness (L), CVA tenderness (R) - Neurological Exam Neurological exam: Present: alert, oriented X3 - Psychiatric Psychiatric exam: Present: normal affect, normal mood Results - Labs CBC & BMP: 01/17/17 06:56 01/17/17 06:56 Lab Results: I have reviewed the past 24 hour labs
[2017-01-18] MEDS: INSULIN REGULAR 100 UNIT/ML SUBCUT SCH ×2 (08:29→12:29)
[2017-01-18] MEDS: cefTRIAXone 1,000 MG in SODIUM CHLORIDE 0.9% 100 ML IV SCH (08:29)
[2017-01-18] MEDS: FUROSEMIDE 20 MG/2 ML VIAL IV SCH (08:30)
[2017-01-18] MEDS: PANTOPRAZOLE 40 MG TABLET PO SCH (08:30)
[2017-01-18] MEDS: DILTIAZEM CD 180 MG CAPSULE PO SCH (08:30)
[2017-01-18] MEDS: NICOTINE 21 MG/24 HR PATCH TRANSDERM SCH (08:30)
[2017-01-18] MEDS: DOCUSATE SODIUM 100 MG CAPSULE PO SCH (08:30)
[2017-01-18] MEDS: DIGOXIN 0.125 MG TABLET PO SCH (08:31)
[2017-01-18] MEDS: METOPROLOL SUCCINATE XL 100 MG TABLET PO SCH (08:31)
[2017-01-18] MEDS: MAGNESIUM CHLORIDE 64 MG TABLET PO SCH (08:31)
[2017-01-18] MEDS: POTASSIUM CHLORIDE 10 MEQ TABLET PO SCH (08:31)
--- NOTE | 2017-01-18 08:36 | Gastrointestinal Progress Note ---
Assessment and Plan (1) Anemia Status: Acute Assessment and plan: 01/17-HH stable at 8/ w/o overt bleeding. Continue to monitor HH and will plan to proceed tentatively with EGD once Plavix/Pradaxa held x 5 days. Plan and addendum to follow by Dr Spear. 01/16-H&H 01/25 following 3 units of packed red blood cells. To be transfused 1 more today. Stools 3+ for occult blood. Still awaiting medical records from [facility]. Plan an addendum to followed by Dr. Spear. 01/15-2 week history of increased fatigue, weakness, shortness of breath with H& H of 11/20 and melena on Pradaxa, Plavix and aspirin therapy. Status post carotid endarterectomy 12/22 at [facility]. No known prior history of anemia in the past. No prior blood transfusions. No known endoscopy in facility database. Hold anticoagulants and will consider diagnostic EGD tomorrow to further evaluate. Stools for occult blood. Plan an addendum to follow Dr. Spear. Current Visit: Yes Qualifiers: Iron deficiency anemia type: chronic blood loss Exam (Progress Note) - Constitutional Vitals: Period Temp Pulse Resp BP Sys/Song Pulse Ox Last 24 Hr 97.3 F-98.4 F 43-99 18-22 131-148/44-84 90-100 Results - Labs CBC & BMP: 01/17/17 06:56 01/17/17 06:56 Specialty Discharge - Follow Up or Referrals Follow up with: Jose Enrique Adhikari MD [Physician] - (follow up Sun or the or .)
--- NOTE | 2017-01-18 09:27 | Pulmonology Progress Note ---
Pulmonary - PN: Subj Interval history: The patient is a 76-year-old white man that has numerous problems. He has COPD and vascular disease. He recently had a carotid endarterectomy in [place]. He is on several blood thinners. He came in with anemia and a GI bleed. He received several units of packed cells. He did have some mild CHF. He did have significant hematuria but is doing better now. His urine has cleared up nicely. He is not having any further melena. He has been eating okay. He feels like his breathing is much better. Exam (Progress Note) - Constitutional Vitals: Period Temp Pulse Resp BP Sys/Song Pulse Ox Last 24 Hr 97.3 F-98.4 F 43-99 18-22 131-148/44-84 90-100 Exam: General appearance: normal weight, no acute distress (He is sitting up eating breakfast and looks okay. He is not having any respiratory distress now.) - Head Head exam: Present: normal inspection, normocephalic - Eye Eye exam: Present: EOMI. Absent: scleral icterus Pupils: Present: JEREMIAH - ENT ENT exam: Present: normal exam - Neck Neck exam: Present: normal inspection. Absent: lymphadenopathy, thyromegaly - Respiratory Respiratory exam: Present: He has fairly good breath sounds bilaterally with good air movement and his lungs are much clearer. - Cardiovascular Cardiovascular exam: Present: regular rate and rhythm. Absent: gallop, systolic murmur - GI/Abdominal GI/Abdominal exam: Present: normal bowel sounds, soft. He has no tenderness or guarding. - Extremities Exam Extremities exam: Absent: calf tenderness, edema - Neurological Exam Neurological exam: Present: alert, oriented X3. Absent: CN II-XII intact - Psychiatric Psychiatric exam: Present: normal affect - Skin Skin exam: Present: warm, dry Results - Labs CBC & BMP: 01/17/17 06:56 01/17/17 06:56 Assessment and Plan (1) CHF (congestive heart failure) Status: Acute Assessment and plan: The patient is feeling much better and his lungs are clear. His CHF has cleared. Current Visit: Yes (2) COPD (chronic obstructive pulmonary disease) Status: Acute Assessment and plan: The patient is a chronic smoker with some COPD. Will continue with bronchodilator therapy. He is not wheezing now and his breathing is much better. Current Visit: Yes (3) Anemia Status: Acute Assessment and plan: Patient came in with a hematocrit of 19.7 and has received transfusions. His hematocrit is 25 today and stable. Current Visit: Yes Qualifiers: Iron deficiency anemia type: chronic blood loss (4) GI bleed Status: Acute Assessment and plan: Patient is stable now and not having any bleeding. Current Visit: Yes (5) Status post carotid endarterectomy Status: Acute Assessment and plan: The patient had a carotid endarterectomy several weeks ago and has been on anticoagulation. He is doing well following his surgery. Current Visit: Yes (6) Chronic anticoagulation Status: Chronic Assessment and plan: The patient has been taken multiple anticoagulants. Now he is having significant bleeding. His anticoagulation will have to be adjusted in the future. Current Visit: Yes (7) Diabetes Status: Chronic Assessment and plan: Patient's glucose is 151 . Current Visit: Yes Qualifiers: Diabetes mellitus type: type 2 Diabetes mellitus complication status: without complication (8) Hypertension Status: Chronic Assessment and plan: Patient's blood pressure is stable. Overall he is hemodynamically stable. Current Visit: Yes Qualifiers: Hypertension type: essential hypertension Qualified Code(s): I10 - Essential (primary) hypertension Specialty Discharge - Follow Up or Referrals Follow up with: Jose Enrique Adhikari MD [Physician] - (follow up Sun or the or .)
--- NOTE | 2017-01-18 14:47 | Discharge Summary ---
Hospital Course - Hospital Course Hospital Course: Patient came in hospital with GI bleed. Required 3 units of blood. Was seen by GI services. It was noted that he was known to anticoagulants including Pradaxa as well as Plavix and aspirin. We did stop these and his bleeding slowed. During hospitalization was noted his sodium got quite low and supplement this with IV fluids. He was obviously quite anemic secondary to this episode and did suffer an element of shortness of breath secondary to mild CHF and possible early onset COPD. While in ICU he pulled his Forbes catheter out and sustained a significant bleed at which time I got urology to see him and we put an irrigation catheter in him. I believe he did this secondary to some confusion. Nonetheless this irrigation after 1-2 days clear to well. It was felt that we could would leave the Forbes in for another 5 days at which time at home we would discontinue it per home health. He is alert and oriented at this time does want to go home and we discharged him, he was in stable condition. We are holding any anticoagulants at this time to schedule him for an upper GI next week. Will be following with the closely as well as specialty services. Diagnosis - Discharge Diagnosis (1) COPD (chronic obstructive pulmonary disease) Status: Acute (2) GI bleed Status: Acute (3) Hematuria Status: Acute (4) Hyponatremia Status: Acute Specialty Discharge - Follow Up or Referrals Follow up with: Jose Enrique Adhikari MD [Physician] - 01/23/17 2:00 pm (follow up Mon or Tu the or .) Discharge Plan - Discharge Data Disposition: Disch To Home/Self Care Condition at Discharge: Stable Discharge Diet: advance to your usual diet, diabetic diet Activity: increase activity as tolerated Hygiene: no restrictions Weight Bearing at Discharge: full weight bearing, weight bear as tolerated Driving: not for Contact your physician if you experience:: fever over 101, Difficulty voiding, Nausea/Vomiting - Discharge Medications New Tamsulosin [Flomax] 0.4 mg PO DAILY #90 capsule traZODone [Desyrel] 50 mg PO BEDTIME #90 tablet Aspirin [Ecotrin] 81 mg PO QOTHER DAY #90 tablet. Albuterol/Ipratropium Neb [Duoneb] 3 ml RESP TX RT Q6H #120 neb Finasteride [Proscar] 5 mg PO BEDTIME #90 tablet Continue Fluticasone 50 Mcg Nasal [place] [Flonase Nasal [place]] 1 spray BOTH NARES DAILY PRN PRN Reason: Sinus Symptoms Metoprolol Succinate 100 mg PO QAM hydroCHLOROthiazide [Hydrochlorothiazide] 12.5 mg PO DAILY dilTIAZem HCl [Diltiazem ER (24 hr)] 300 mg PO DAILY Potassium Chloride 10 meq PO DAILY Fenofibrate [Tricor] 145 mg PO DAILY Magnesium Chloride [Slow Mag] 128 mg PO QAM Saxagliptin HCl/Metformin HCl [Kombiglyze Xr 5-1,000 mg Tab] 1 tablet BEDTIME Digoxin Tab [Lanoxin Tab] 0.125 mg PO DAILY #90 tablet Discontinued Losartan [Cozaar] 50 mg PO BID Clopidogrel [Plavix] 75 mg PO DAILY Aspirin EC Tab 81 mg PO DAILY Hydrocodone/Acetaminophen [Hydrocodon-Acetaminophen 5-325] 1 each PO Q4H PRN PRN Reason: Pain - Follow Up or Referral Follow Up: Jose Enrique Adhikari MD [Physician] - 01/23/17 2:00 pm (follow up Sun or the or .) - Forms/Instructions Exam - Constitutional Vitals: Period Temp Pulse Resp BP Sys/Song Pulse Ox Last 24 Hr 97.3 F-98.4 F 43-99 18-20 131-148/44-84 90-100 Discharge Results Procedures and tests throughout hospitalization: Pending Orders 01/15/17 02:00 Occult Blood, Stool Routine Labs on day of discharge: Labs from last 24 hours 01/18/17 01/18/17 01/17/17 11:41 07:39 19:56 POC Glucose 220 H 151 H 205 H 01/17/17 15:49 POC Glucose 280 H DS: Provider Date of admission: 01/15/17 13:22 Primary care physician: . No PCP Attending physician on admission: Carlos Guadarrama DO Consults: 01/15/17 14:38 Consult to Case Mgmt/Social Srvs [CONS] Routine Reason for Case Mgmt/Social Srvs: Discharge Planning Consult to Physician [CONS] Routine Comment: GI bleed, anemia Consulting Provider: Hero Spear Person Notified: md rocha Date Notified: 01/17/17 Time Notified: 08:29 01/15/17 14:50 Consult to Dietitian [CONS] Routine Reason for Dietitian: Other Consult to Pastoral Services [CONS] Routine Comment: Pastoral Screen: Request Court Attendant Visit 01/16/17 07:52 Consult to Physician [CONS] Routine Comment: small pleural effusion and hypoxia Consulting Provider: Isaiah Granados Person Notified: MD rocha 01/16/17 16:38 Consult to Physician [CONS] Routine Comment: Consulting Provider: Carlos Guadarrama When should Consulting Provider be notified: Now Consult to Specialist Group: Urology When should Consulting Provider be notified: Now Person Notified: Dr. Parisi Date Notified: 01/16/17 Time Notified: 16:40 01/16/17 16:40 Consult to Physician [CONS] Routine Comment: Consulting Provider: Gold Parisi Person Notified: Dr. parisi Date Notified: 01/16/17 Time Notified: 16:38 Discharging clinician: Carlos Guadarrama DO
[2017-01-18 16:59] VITALS: BP 141/51
--- NOTE | 2017-01-24 16:47 | Physician Query Form ---
CLICK EDIT DOCUMENT TO SELECT QUERY ANSWER --> OK --> SIGN Adina St RN Clinical Insurance Claims Adjuster W) [phone] (f) [phone] [email or web address]: Make your selection(s) from the choices in EACH section by typing an "x" and enter comments in the comment section. Please use your independent medical judgment in providing your response. This request does not imply that any particular answer is desired or expected. CLINICAL INDICATORS: (Providers should not edit this section) Based on documentation of "He did suffer an element of shortness of breath secondary to mild CHF". Echo showed EF of 60%. Pt. treated with IV Lasix. Please provide further specificity regarding CHF. ACUITY: ( ) Acute ( ) Chronic ( ) Acute on Chronic (x ) Clinically unable to determine TYPE: ( ) Systolic (HFrEF - heart failure with reduced systolic function/EF) ( ) Diastolic (HFpEF - heart failure with preserved systolic function/EF) ( ) Combined Systolic/Diastolic ( ) Other, please specify: ( x) Clinically unable to determine COMMENTS: PLEASE ALSO DOCUMENT RESPONSE IN PROGRESS NOTES AND/OR DISCHARGE SUMMARY Use of terms such as suspected, likely, or probable (associated with a specific diagnosis that is being evaluated, monitored, or treated as if it exists) are acceptable and can be restated in the discharge summary if not ruled out. MTDD
== END 2017-01-18 17:00 | disposition home or self-care (01) | DRG 378 ==
LOC: N.ED 11:00 → N.EDINP 13:22 → N.CC 14:30 → N.5E 01-16 14:33
PROVIDERS: ADMIT Family Medicine; ATTEND Family Medicine